=== PATIENT | female | born 1995 | race Hispanic/Latino ===

== ENCOUNTER 2023-01-15 12:52 | Emergency (ER) | payer OTHER, BC ==
[2023-01-15] MEDS ORDERED: Ibuprofen 400 MG TAB ONE (14:37)
== END 2023-01-15 16:15 | disposition home or self-care (01) ==
LOC: MADERS 12:52
DX: S93.601A Unspecified sprain of right foot, initial encounter (principal); W01.0XXA Fall on same level from slipping, tripping and stumbling without subsequent striking against object, initial encounter